=== PATIENT | female | born 1960 | race Caucasian/White ===

== ENCOUNTER 2016-08-12 05:18 | Inpatient (IN) | payer MEDICARE, MEDICAID ==
[~2016-08-12] VITALS: Ht 172.7 cm; Wt 51.0 kg
[2016-08-12] VITALS (21 sets, daily range): BP systolic 79–126; BP diastolic 44–72; PULSE 74–100; RESP 17–25; O2SAT 92–100
[~2016-08-12 05:18] MED LIST: ALBU8.5H2 INHALATION; ALPR1TAB7 PO; ARIP5TAB5 PO; AZIT250T4 PO; AZIT500T5 PO; CLIN-78 PO; DESV50TA PO; DIAZ5TAB PO; DXM4T PO; GUAI118L13 PO; HYDR-4003 PO; IBUP-1827 PO; PRE20 PO; TRAM50TA2 PO
[2016-08-12 05:39] LABS: Mean Corpuscular Hemoglobin 28.5 pg (27.0-35.0); Mean Corpuscular Volume 82.3 fL (81-100); Platelet Count 197 bil/L (150-400)
[2016-08-12 05:55] LABS: BASOPHILS % (AUTO) 0.9 % (0-3); EOSINOPHILS % (AUTO) 0.1 % (0-5); MONOCYTES % (AUTO) 9.4 % (4-12); NEUTROPHILS % (AUTO) 72.7 % (40-74)
[2016-08-12 06:01] LABS: Magnesium 1.9 mg/dL (1.6-2.6)
--- NOTE | 2016-08-12 06:22 | ED.REPORT ---
HPI-Dyspnea / Wheezing Date of Service Aug 12, 2016 ED Provider: Luther Tiwari MD The patient is a 55 year old female with history of COPD, chronic back and neck pain, anxiety, and IV drug use, who presents to the emergency department by EMS complaining of shortness of breath and increased back pain that began a few hours ago. Her back pain is located on the left side. She has been "sick" for the last few weeks, her symptoms have included: fever, congestion, runny nose, headache, and a productive cough with yellow sputum. She has been out of her inhaler for some time. She denies sore throat, chest pain, abdominal pain, nausea, vomiting or diarrhea. She reports history of heroin use, she last used last night around 2300. Nursing Notes Stated Complaint: SHORT OF BREATH Chief Complaint: Respiratory Distress Nursing Notes Reviewed: Yes Allergies: Coded Allergies: Sulfa (Sulfonamide Antibiotics) (Verified Allergy, Intermediate, FEVER SOB , 08/12/16) No Active Prescriptions or Reported Meds General Time Seen by MD: 05:51 Chief Complaint Shortness of breath, Other (back pain) Hx Obtained From: Patient, EMS Arrived By: Ambulance Sudden in Onset?: No Onset Occurred: 1 - 4 hours ago Symptom Duration: Since onset Location: : Back Quality: Same as prior, Painful Severity: Current: Mild Severity: Maximum: Moderate Recent Healthcare: No recent hospitalization Risk Factors Well's Criteria for PE Well's PE Score: 0-2 pts (low risk 3.6%) Past Medical History Past Medical History Depression Anxiety Chronic neck and back pain on Tramadol COPD Reports: Asthma Past Surgical History neck surgery Reports: Tubal ligation Family History Noncontributory Smoking History Current Every Day Smoker Social History Alcohol Use: 1-3 per day Drug Use: IV drugs, THC Other Social History: Local resident Ambulatory Status Independent Review of Systems Constitutional: Reports: Fever Ears / Nose / Throat: Reports: Nasal congestion, Denies: Sore throat Respiratory: Reports: Prod cough, yellow, Shortness of breath Cardiovascular: Denies: Chest pain Musculoskeletal: Reports: Back pain Allergy / Immune: Reports: Rhinorrhea Complete sys rev & neg: except as marked. GI: Denies: Abdominal pain, Diarrhea, Nausea, Vomiting Neurologic: Reports: Headache Physical Exam Initial Vital Signs Vital Signs (First) Date Time Temp Pulse Resp B/P Pulse Ox O2 Delivery O2 Flow Rate FiO2 3/29/17 05:35 37.0 89 25 94/63 100 Simple Mask 8 Initial VS: Reviewed Head / Eyes: Atraumatic, Normocephalic, PERRL ENT: Mucous membranes moist, Conjunctiva normal, No scleral icterus Abdomen / GI: Soft, Non-tender, No guarding, No rebound, No distention Lymphatic: No lymphadenopathy Extremities: Vascular intact, Neuro intact, No swelling, No tenderness Skin: Warm, Dry, No cyanosis Neurologic: Alert, Oriented, Nonfocal Psychiatric: Mood/affect normal, Behavior normal, Normal thought content General/Constitutional: Awake, Alert, No acute distress, Cooperative Neck: Atraumatic, Supple, No meningismus, Full range of motion, No swelling, Non-tender, No masses Respiratory / Chest: Breath sounds = bilat, No respiratory distress, No wheezing, No retractions Coarse breath sounds bilaterally. No increased work of breathing. Cardiovascular: Heart rate NL, Regular rhythm, Heart sounds NL, No gallop, No murmurs, No rubs, Peripheral circulation NL Back: Full range of motion, No midline vertebral tend Interpretation & Diagnostics Lab Results Interpretation Result Diagram: 08/12/16 0500 08/12/16 0500 Test 08/12/16 05:00 08/12/16 07:15 White Blood Count 10.5th/mm3 (3.8-10.1) Red Blood Count 4.24mil/mm3 (3.90-5.20) Hemoglobin 12.1g/dL (12.0-15.6) Hematocrit 34.9% (35.0-46.0) Mean Corpuscular Volume 82.3fL (81-100) Mean Corpuscular Hemoglobin 28.5pg (27.0-35.0) Mean Corpuscular Hemoglobin Concent 34.7% (32.0-37.0) Red Cell Distribution Width 13.1% (12.3-15.4) Platelet Count 197bil/L (150-400) Neutrophils (%) (Auto) 72.7% (40-74) Lymphocytes (%) (Auto) 16.7% (14-46) Monocytes (%) (Auto) 9.4% (4-12) Eosinophils (%) (Auto) 0.1% (0-5) Basophils (%) (Auto) 0.9% (0-3) Band Neutrophils % 0% (1-5) Sodium Level 131mEq/L (134-144) Potassium Level 4.2mEq/L (3.5-5.2) Chloride Level 91mEq/L (97-108) Carbon Dioxide Level 24mmol/L (18-29) Blood Urea Nitrogen 18mg/dL (6-24) Creatinine 0.61mg/dL (0.57-1.00) Estimat Glomerular Filtration Rate 147mL/min (>59) Glucose Level 109mg/dL (60-99) Calcium Level 9.0mg/dL (8.5-10.1) Magnesium Level 1.9mg/dL (1.6-2.6) Total Bilirubin 0.6mg/dL (0.0-1.2) Aspartate Amino Transf (AST/SGOT) 30U/L (0-50) Alanine Aminotransferase (ALT/SGPT) 34U/L (0-32) Alkaline Phosphatase 80U/L (25-150) Total Protein 8.4g/dL (6.4-8.4) Albumin 3.2g/dL (3.4-5.0) Lactic Acid Level 0.7mmol/L (0.4-2.0) ECG Interpretation ECG Interpretation: Sinus rhythm with a rate of [address] T changes Time: 09:38 Interpreted by: ED physician X-Ray Chest Interpretation Chest Xray Interpretation: Concerning for left lower lobe infiltrate Interpretation / Wet Read by: Wet read ED physician Re-Eval/Medical Decision Med Decision/Clinical Course 55 yo f h/o IVDU, cough, fevers. LLL pneumonia. Trops elevated. No EKG changes. Admit for CA-Pneumonia and troponin elevation. Cannot r/o endocarditis - blood cultures sent. Rocephin, AZT given. Source of Hx: Old records, EMS Re-Evaluation/Progress #1: Time of Eval: 06:28 Re-Evaluation/Progress Note: Her symptoms were slightly improved with the Nebulizer treatment. Re-Evaluation/Progress #2: Time of Eval: 09:18 Re-Evaluation/Progress Note: Rechecked the patient. Discussed results, diagnosis, and plan for admission. All questions were addressed. Consultation : Referral / Consult Name: Jian Stringer MD Consulted With: Hospitalist Requested Call at: 09:18 Call Returned at: 10:04 Clerical Investigator: Will see patient, Agrees with eval, Agrees with plan, Accepts admit Counseled Regarding: Diagnosis, Lab results, Need for admission Discharge & Departure Impression: Primary Impression: Pneumonia Pneumonia type: due to unspecified organism Laterality: left Lung location : lower lobe of lung Qualified Code: J18.9 - Pneumonia, unspecified organism Additional Impressions: Elevated troponin Hypotension Hypotension type: unspecified hypotension type Qualified Code: I95.9 - Hypotension, unspecified COPD exacerbation Disposition: Home Discharge Condition All VS Reviewed: Yes Condition: Stable Referrals: Alise Mackey PA-C (PCP) Scribe Attestation Portions of this note were transcribed by Dilma Granados. Dr. Karie Price personally performed the history, physical exam and medical decision-making; I reviewed and confirmed the accuracy of the information in the transcribed note. Signed by: Isai Bruner, 08/12/2016 at 1015. copies to: Alise Mackey PA-C, Ben M MD Aug 12, 2016 06:22 Dilma Granados Aug 12, 2016 06:30 Hypotension type: unspecified hypotension type Qualified Code: I95.9 - Hypotension, unspecified COPD exacerbation Disposition: Home Discharge Condition All VS Reviewed: Yes Condition: Stable Referrals: Alise Mackey PA-C (PCP) Scribniru Attestation Portions of this note were transcribed by Dilma Granados. Dr. Karie Price personally performed the history, physical exam and medical decision-making; I reviewed and confirmed the accuracy of the information in the transcribed note. Signed by: Isai Bruner, 08/12/2016 at 1015. copies to: Alise Mackey PA-C, Ben M MD Aug 12, 2016 06:22 Dilma Granados Aug 12, 2016 06:30
[2016-08-12] MEDS ORDERED: cefTRIAXone Inj 2,000 MG in Dextrose 5% Minibag Plus 50 ML IV ONE (06:30)
[2016-08-12] MEDS ORDERED: Azithromycin Inj 500 MG in Dextrose 5% 250 ML IV ONE (06:30)
[2016-08-12] MEDS ORDERED: 0.9% Sodium Chloride 1,000 ML IV ONE (06:30)
[2016-08-12] MEDS ORDERED: HYDROcodone-APAP 5-325 mg Tablet PO ONE (06:35)
[2016-08-12] MEDS ORDERED: Ondansetron 2 mg/mL 2 mL Inj ONE (07:55)
--- NOTE | 2016-08-12 09:13 | DRSVH ---
PROCEDURE: X-RAY CHEST ONE VIEW, PORTABLE ([id number]) INDICATIONS: SHORT OF BREATH TECHNIQUE: One view of the chest was acquired. COMPARISON: [facility], CR, XR CHEST 2VW, 02/29/2016, 7:11. FINDINGS: Surgical changes and devices: Lower cervical spine fixation hardware. Lungs and pleura: Bibasilar rounded opacities are present which may represent nipple shadows. Patchy opacity also present on the left lung base suspicious for pneumonia. Mediastinum: Mediastinal contours appear normal. Heart size is normal. Bones and chest wall: No suspicious bony lesions. Overlying soft tissues appear unremarkable. IMPRESSION: 1. Probable prominent bibasilar nipple shadows and airspace opacity within the left lung base likely related to aspiration or pneumonia. The recommend clinical correlation and repeat two-view chest rad iograph in 30 days is recommended to assure clearing. Dictated by: Giuseppe Martinez RRA Interpreted: Neisha Bradford MD on 08/12/2016 at 9:11 Transcribed by: JEANNIE on 08/12/2016 at 9:13 Approved by: Neisha Bradford MD, PhD on 08/12/2016 at 16:41
[2016-08-12] MEDS ORDERED: 0.9% Sodium Chloride 1,000 ML IV SCH (10:06)
[2016-08-12] MEDS ORDERED: Polyethylene Glycol (PEG) 17 Gm Powder PO PRN (10:10)
[2016-08-12] MEDS ORDERED: Senna-Docusate 8.6-50 mg Tablet PO PRN (10:10)
[2016-08-12] MEDS ORDERED: Alum-Mag Hydrox-Simeth 30 mL Suspension PO PRN ×2 (10:10)
[2016-08-12] MEDS: 0.9% Sodium Chloride 1,000 ML IV SCH ×3 (10:10→23:48)
[2016-08-12] MEDS ORDERED: Ondansetron 2 mg/mL 2 mL Inj IVPUSH PRN ×2 (10:10)
[2016-08-12] MEDS ORDERED: Albuterol 2.5 mg/3 mL Inhalation Solution NEB PRN (10:10)
[2016-08-12] MEDS ORDERED: MethylprednisoLONE Sodium Succinate 40 mg/mL Inj IVPUSH SCH (10:15)
[2016-08-12] MEDS ORDERED: Albuterol HFA 60 Puff 8 Gm Inhaler INHALATION PRN (10:20)
[2016-08-12] MEDS ORDERED: CODEINE PHOSPHATE PO PRN (10:20)
[2016-08-12] MEDS ORDERED: GUAIFENESIN PO PRN (10:20)
--- NOTE | 2016-08-12 10:20 | PCM.HPMED ---
Subjective Date of Service Aug 12, 2016 Primary Provider: Admitting Physician: Primary Care Physician: Alise Mackey PA-C Attending Physician: Chief Complaint: Chest pain, shortness of breath generalized malaise History of Present Illness: 55-year-old female presents to the emergency room because she has been feeling particularly poorly today, the major thing she tells me is that it was back pain that really caused her to call 911. She is getting back pain in addition to her wheezing/cough and generalized malaise that has been getting worse for the last 2-3 weeks. He is an IV drug abuser states she "does 2 points of heroine" a day and therefore should not worry about going through withdrawl. She is was angry with her family who just kept telling her she was "dope sick", she knew something was different and finally because no P was helping her 911 and was brought to the emergency room. She has been having runny nose and cough for weeks generalized malaise and fatigue. She says that her shortness of breath is not really acutely worse at this point in time. The last time she used was last night at 11 PM. Review of Systems: General no fevers weight loss weight gain, patient states she has been having sweats and malaise per week Neuro no syncope or loss of consciousness, no extremity weakness or numbness no seizures CVS: No chest pain no orthopnea PND Pulmonary: ++ cough or sputum no dyspnea GI: No nausea vomiting diarrhea blood or black stools + is eating today but had not felt like eating in 2 days : No dysuria or urinary frequency or urinary hesitancy Musculoskeletal: No joint swelling + back pain Skin: No new rashes Endocrine: No heat or cold intolerance is no polyuria polydipsia Heme: No easy bleeding or bruising no lymphadenopathy Psych: No new anxiety insomnia, no homicidal or suicidal ideation, she has serious ongoing depression with "pain of life" she is not homicidal or suicidal she just wants to "get her life back" HEENT: No new swelling, sore throat hearing loss visual disturbances.Throat pain or drainage Eyes: No visual deficits Allergies Coded Allergies: Sulfa (Sulfonamide Antibiotics) (Verified Allergy, Intermediate, FEVER SOB , 08/12/16) PMH Depression Anxiety Chronic neck and back pain on Tramadol COPD Reports: Asthma Past Surgical History neck surgery Reports: Tubal ligation Family History-Noncontributory no known history of early cancer, diabetes or cardiac disease Smoking History Current Every Day Smoker Social History Alcohol Use: 1-3 per day Drug Use: IV drugs (heroine), THC Social History Hx Alcohol Use: No Hx Substance Use: Yes (Heroin) Smoking Status: Current Every Day Smoker Exam Vital Signs Vital Sign - Last Date Time Temp Pulse Resp B/P Pulse Ox O2 Delivery O2 Flow Rate FiO2 08/12/16 08:00 84 19 81/49 95 Room Air 08/12/16 05:35 37.0 8 Intake and Output 08/11/16 08/11/16 08/12/16 Cumulative From/Thru 15:00 23:00 07:00 08/12/16 05:35 - 08/12/16 07:00 Intake Total 1000 ml 1000 ml Balance 1000 ml 1000 ml Intake IV Total 1000 ml 1000 ml Exam Gen.: Patient lying in bed no apparent distress Eyes: Open, conjunctiva clear, no scleral icterus HEENT: Normal ears, normal nose Neck: trachea midline, supple CVS: RRR no murmur or gallop Lungs: CTA no wheezes rhonchi no evidence of respiratory distress or accessory muscle usage Abdomen: NABS/NT Muscular: Extremities moving 4, no obvious deformities Neuro: cranial nerves II through XII are intact to gross examination, no focal deficits Skin: Warm and dry Psych: Pleasant and appropriate Lab and Diagnostics Labs Gen.- A+ O 3 no apparent distress. Appears older than stated age Eyes- open conjunctiva clear, pupils equal nonicteric Mouth- oral mucosa moist, no exudate, dentition intact ENT- ears normal, nose normal Neck- supple/trach midline CVS- RRR no murmur or gallop Lungs- CTA, no accessory muscle usage GI- NABS/NT soft Musc- moving 4 no obvious deformity Neuro- cranial nerves II through XII intact to gross examination, nonfocal Skin- warm and dry, no rashes/lesions/wounds noted Psych- pleasant and appropriate, she was intermittently tearful and I saw her initially, when I return to visit with her she looks much more put together. Result Diagram: 08/12/16 0500 08/12/16 0500 X-Rays, CTs and MRIs CXR . Probable prominent bibasilar nipple shadows and airspace opacity within the left lung base likely related to aspiration or pneumonia. The recommend clinical correlation and repeat two-view chest radiograph in 30 days is recommended to assure clearing. 12-lead ECG EKG concurrently reviewed by myself rate 76, QTC [address] segment changes noted . Sinus rhythm * Cannot exclude anterior infarct . No previous ECG available for comparison Assessment & Plan 55-year-old female IV drug abuser presenting with pneumonia/COPD exacerbation and likely musculoskeletal back pain from coughing/dyspnea. #Elevated troponin -Rule out AR by EKG and enzymes, -Not pursuing Myoview at this time given benign nature and atypical chest pain. #Hypotension/hyponatremia -IV fluids, follow up in the morning #COPD/pneumonia-patient on room air, it is my thought that this patient might be able to go home 08/13 -Zithromax/Rocephin -Prednisone 40 mg daily -Albuterol/bronchodilator #IVDA/opiate dependence -Might even utilize clonidine in addition to gabapentin for withdrawal symptoms currently blood pressure too low for clonidine -Care management consult -Not pursuing endocarditis at this time unless blood cultures turn positive #Chronic neck pain-apparently she lies his tramadol sc outpatient setting and will hold off on that for now. Will utilize Tylenol/Naprosyn #Anxiety/Depression? Hx bipolar reported- -will start patient on Celexa 20 mg daily, gabapentin 300 mg 34 times a day as IV, I want to try this before utilizing lorazepam -History the patient has been on ariprazole will resume #Prophylaxis-DVT with heparin/SCDs, GI pantoprazole #Disposition patient from independent living full code Time spent 60min Jian Stringer MD Aug 12, 2016 10:20
[2016-08-12 10:59] LABS: TROPONIN T 0.022 ug/L (0.0-0.011)
[2016-08-12 11:09] LABS: Creatine Kinase 24 U/L (21-215)
--- NOTE | 2016-08-12 12:54 | NUR ---
Admission Pt arrived to [facility] rm 1020 via gurney at approx 1250. Rec'd report from RIKI Ramirez RN. Pt was able to ambulate to the hospital bed. Pt tearful and states "I cannot stop crying" discussed w/ patient if she had any drugs on her person, she states no "I am done" pt states that she had stopped eating because she no longer wants to be alive. Pt w/ recent life stressors that have affected her mentation and lifestyle. IV SL, RA, Reports difficulty coughing and increased midsternal pain w/ coughing. Oriented to room and call light completed by ROTARY DUMP OPERATOR.
[2016-08-12] MEDS: Albuterol 2.5 mg/3 mL Inhalation Solution NEB SCH ×2 (13:24→16:28)
[2016-08-12] MEDS: Sodium Chloride LOK Flush 10 mL Syringe IVFLUSH SCH ×2 (13:39→23:48)
[2016-08-12 14:21] LABS: APPEARANCE,URINE HAZY (CLEAR,HAZY); COLOR,URINE YELLOW (YELLOW); OCCULT BLOOD,URINE TRACE (NEGATIVE); UROBILINOGEN,URINE NORMAL (NORMAL)
[2016-08-12 16:20] LABS: TROPONIN T 0.023 ug/L (0.0-0.011)
[2016-08-12 16:31] LABS: Creatine Kinase 23 U/L (21-215)
[2016-08-12] MEDS: LORazepam 0.5 mg Tablet PO PRN (16:48)
--- NOTE | 2016-08-12 17:07 | NUR ---
Possible panic attack Pt had just finished her breathing treatment and this RN could hear her coughing w/ loud stridor from neighboring room. Entered room, pt bent over coughing and crying. Diaphoretic. RT called in as well as willow worker. VSS HR 110, Pt encouraged to breathe into a paperbag and cool rag placed on her neck Ativan administered. Pt able to calm down, heart rate decreased. Hospitalist notified and this RN requests medications to help w/ withdrawal symptoms. No new orders at this time. Call light w/in reach
[2016-08-13] VITALS (7 sets, daily range): BP systolic 101–144; BP diastolic 58–83; PULSE 68–102; RESP 16–18; O2SAT 94–96
[2016-08-13] MEDS: LORazepam 0.5 mg Tablet PO PRN ×2 (00:41→10:07)
--- NOTE | 2016-08-13 03:46 | NUR ---
Withdrawal Half way through shift, patient started c/o feeling like she was going through withdrawal and was in 10/10 pain. Noted to be restless in bed, flailing legs around, and gown half way off patient. Paged Dr. Capone and received order for Ativan 1mg IVP once. Ativan given w/ no improvement. Received new order for Methadone 10mg PO. Somewhat effective results. Waves of restlessness/calling out noted, but currently resting with eyes closed in bed. Alarm in place for safety, as patient isn't using call light for needs and continues to be impulsive and getting OOB without assistance.
[2016-08-13] MEDS ORDERED: cefTRIAXone Inj 1,000 MG in Dextrose 5% Minibag Plus 50 ML IV SCH (07:00)
[2016-08-13] MEDS ORDERED: Pantoprazole 20 mg ER24 Tablet PO SCH (07:30)
[2016-08-13] MEDS ORDERED: DESVENLAFAXINE SUCCINATE 50 MG PO SCH (08:30)
[2016-08-13] MEDS: Sodium Chloride LOK Flush 10 mL Syringe IVFLUSH SCH (08:30)
[2016-08-13] MEDS: 0.9% Sodium Chloride 1,000 ML IV SCH (10:33)
--- NOTE | 2016-08-13 13:29 | NUR ---
IMM explained and verbal consent given(patient in isolation room). Copy of IMM given to patient. Arely CONTEH/LORETTA
--- NOTE | 2016-08-13 13:35 | NUR ---
Social Work- Initial Assessment/ Readiness for Discharge Data: See Initial Assessment. Pt is a 55 year old female admitted 08/12/16 for pneumonia per H&P. Pt's insurance is [employer] and [email or web address]. Pt has no PCP. SW met with pt regarding discharge plan, SW role explained. Pt alert and oriented x3. Pt resides in an apartment in [place] alone with her pets where she remains independent with her ADLs. Pt uses no DME, does not drive. Pt has no LTC or VA benefits. Pt has a remote history of HH RN PT 5 years ago, unsure which company was used. Pt has no SNF history. Pt has no DPOA, SW encouraged pt to complete this and bring copy to the hospital. Pt has a history of IV drug use. SW spoke with pt regarding motivation to change. The patient has agreed to complete an on-site assessment with [facility]. CD consult deferred. GERMAN obtained. Pt to discharge home with family to transport via POV. No additional discharge needs anticipated. SW will continue to follow. Assessment: Pt who is independent at base. Plan: Pt to receive on site assessment with [facility]. GERMAN obtained. Pt to discharge home with family to transport via POV. No additional discharge needs anticipated. SW will continue to follow if needs arise. GILBERTO Foley Addendum: 08/13/16 at 1343 by TREVA BUSTAMANTE SS Amended: Links added. Addendum: 08/13/16 at 1504 by TREVA BUSTAMANTE SS SW followed up with pt regarding CDP. Pt states she no longer wants to speak with CDP, just wants to go home. SW alerted CDP of this. Pt is medically stable. Pt to discharge home with friend to transport via POV. SW will continue to follow. Teena Bustamante, LIME SLUDGE KILN OPERATOR
--- NOTE | 2016-08-13 14:38 | PCM.DIMED ---
Discharge Instructions Date of Service Aug 13, 2016 Dates of Hospitalization Aug 12, 2016 at 11:35 Discharge Diagnosis Discharge Diagnosis Back pain, COPD/pneumonia Test Results CXR consistent with pneumonia Diet No restrictions Activity No restrictions Call your provider Fever or Chills, Chest pain Patient Instructions Find yourself a primary care provider [facility] Jian Stringer MD Aug 13, 2016 14:38
[2016-08-13] MEDS ORDERED: PANT20TA2 PO (14:43)
[2016-08-13] MEDS ORDERED: PRE20 PO (14:43)
[2016-08-13] MEDS ORDERED: GABA300C PO (14:43)
[2016-08-13] MEDS ORDERED: NAPR250T PO (14:43)
[2016-08-13] MEDS ORDERED: NICO1PAT6 TOPICAL (14:43)
[2016-08-13] MEDS ORDERED: LORA-302 PO (14:43)
[2016-08-13] MEDS ORDERED: ZIT250 PO (14:43)
[2016-08-13] MEDS ORDERED: CEFU500T61 PO (14:43)
[2016-08-13] MEDS ORDERED: ALBU8.5H2 INHALATION (14:43)
[2016-08-13] MEDS ORDERED: ARIP5TAB5 PO (14:46)
[2016-08-13] MEDS ORDERED: CITA20TA PO (14:46)
--- NOTE | 2016-08-13 14:56 | PCM.DIMED ---
Discharge Instructions Date of Service Aug 13, 2016 Dates of Hospitalization Aug 12, 2016 at 11:35 Discharge Diagnosis Discharge Diagnosis Back pain, COPD/pneumonia Diet No restrictions Activity No restrictions Call your provider Fever or Chills, Chest pain Patient Instructions Find yourself a primary care provider the [facility] in this hospital may be a good choice given appointment as soon as possible Follow-up Provider: [facility] Follow-up with PCP in: 1 week Jian Stringer MD Aug 13, 2016 14:56
--- NOTE | 2016-08-13 14:58 | PCM.DC.MED ---
Discharge Summary Date of Service Aug 13, 2016 Dates of Hospitalization Date of Hospital Admission Aug 12, 2016 at 11:35 Date of Discharge: Aug 13, 2016 Providers: Admitting Physician: Augusta Stringer MD Primary Care Physician: Alise Mackey PA-C Attending Physician: Augusta Stringer MD Diagnosis at Time of Discharge Diagnosis at Time of Discharge Back pain, COPD/pneumonia Procedures XRay, CTs & MRIs CXR . Probable prominent bibasilar nipple shadows and airspace opacity within the left lung base likely related to aspiration or pneumonia. The recommend clinical correlation and repeat two-view chest radiograph in 30 days is recommended to assure clearing. ECG 12 Lead EKG concurrently reviewed by myself rate 76, QTC [address] segment changes noted . Sinus rhythm * Cannot exclude anterior infarct . No previous ECG available for comparison Other Diagnostics Blood culture after 24 hours negative Brief History 55-year-old female presents to the emergency room because she has been feeling particularly poorly today, the major thing she tells me is that it was back pain that really caused her to call 911. She is getting back pain in addition to her wheezing/cough and generalized malaise that has been getting worse for the last 2-3 weeks. He is an IV drug abuser states she "does 2 points of heroine" a day and therefore should not worry about going through withdrawl. She is was angry with her family who just kept telling her she was "dope sick", she knew something was different and finally because no P was helping her 911 and was brought to the emergency room. She has been having runny nose and cough for weeks generalized malaise and fatigue. She says that her shortness of breath is not really acutely worse at this point in time. The last time she used was last night at 11 PM. Hospital Course 55-year-old female IV drug abuser presenting with pneumonia/COPD exacerbation and likely musculoskeletal back pain from coughing/dyspnea. #Elevated troponin -Rule out MD by EKG and enzymes, -Not pursuing Myoview at this time given benign nature and atypical chest pain. #Hypotension/hyponatremia- -IV fluids, overnight, hypotension resolved #COPD/pneumonia-patient on room air, it is my thought that this patient might be able to go home 08/13 -Zithromax/Rocephin -Prednisone 40 mg daily -Albuterol/bronchodilator #IVDA/opiate dependence -Might even utilize clonidine in addition to gabapentin for withdrawal symptoms currently blood pressure too low for clonidine -Care management consult -Not pursuing endocarditis at this time unless blood cultures turn positive negative after 24 hours -Unfortunately patient did not want to meet with the chemical dependency counselor and wanted to go home so she was discharged in stable and improved condition from perspective of lungs. #Chronic neck pain- utilize Tylenol/Naprosyn #Anxiety/Depression? Hx bipolar reported- -will start patient on Celexa 20 mg daily, gabapentin 300 mg 3-4 times a day, I want to try this before utilizing lorazepam -History the patient has been on ariprazole will resume #Prophylaxis-DVT with heparin/SCDs, GI pantoprazole #Disposition patient from independent living full code Sadly patient returning to live with her daughter who is still using I am not hopeful for her recovery I gave her one-month supply of all of these medications and a referral to the [facility] resident clinic Exam Vital Signs (Last) Date Time Temp Pulse Resp B/P Pulse Ox O2 Delivery O2 Flow Rate FiO2 08/13/16 10:19 36.0 68 18 121/75 96 Room Air 08/12/16 05:35 8 Exam Gen.- A+ O 3 no apparent distress. Appears older than stated age Eyes- open conjunctiva clear, pupils equal nonicteric Mouth- oral mucosa moist, no exudate, dentition intact ENT- ears normal, nose normal Neck- supple/trach midline CVS- RRR no murmur or gallop Lungs- CTA, no accessory muscle usage GI- NABS/NT soft Musc- moving 4 no obvious deformity Neuro- cranial nerves II through XII intact to gross examination, nonfocal Skin- warm and dry, no rashes/lesions/wounds noted Psych- pleasant and appropriate, she was intermittently tearful and I saw her initially, when I return to visit with her she looks much more put together. Test 08/12/16 05:00 08/12/16 07:15 08/12/16 13:48 08/12/16 15:45 White Blood Count 10.5th/mm3 (3.8-10.1) Red Blood Count 4.24mil/mm3 (3.90-5.20) Hemoglobin 12.1g/dL (12.0-15.6) Hematocrit 34.9% (35.0-46.0) Mean Corpuscular Volume 82.3fL (81-100) Mean Corpuscular Hemoglobin 28.5pg (27.0-35.0) Mean Corpuscular Hemoglobin Concent 34.7% (32.0-37.0) Red Cell Distribution Width 13.1% (12.3-15.4) Platelet Count 197bil/L (150-400) Neutrophils (%) (Auto) 72.7% (40-74) Lymphocytes (%) (Auto) 16.7% (14-46) Monocytes (%) (Auto) 9.4% (4-12) Eosinophils (%) (Auto) 0.1% (0-5) Basophils (%) (Auto) 0.9% (0-3) Band Neutrophils % 0% (1-5) Sodium Level 131mEq/L (134-144) Potassium Level 4.2mEq/L (3.5-5.2) Chloride Level 91mEq/L (97-108) Carbon Dioxide Level 24mmol/L (18-29) Blood Urea Nitrogen 18mg/dL (6-24) Creatinine 0.61mg/dL (0.57-1.00) Estimat Glomerular Filtration Rate 147mL/min (>59) Glucose Level 109mg/dL (60-99) Calcium Level 9.0mg/dL (8.5-10.1) Magnesium Level 1.9mg/dL (1.6-2.6) Total Bilirubin 0.6mg/dL (0.0-1.2) Aspartate Amino Transf (AST/SGOT) 30U/L (0-50) Alanine Aminotransferase (ALT/SGPT) 34U/L (0-32) Alkaline Phosphatase 80U/L (25-150) Total Protein 8.4g/dL (6.4-8.4) Albumin 3.2g/dL (3.4-5.0) Lactic Acid Level 0.7mmol/L (0.4-2.0) Urine Color Yellow (YELLOW) Urine Appearance Hazy (CLEAR,HAZY) Urine pH 7.0 (5.0-8.0) Urine Specific [place] 1.010 (1.003-1.035) Urine Protein Negativemg/dL (NEG,TRACE) Urine Glucose (UA) Negativemg/dL (NEGATIVE) Urine Ketones Negativemg/dL (NEGATIVE) Urine Occult Blood Trace (NEGATIVE) Urine Nitrite Positive (NEGATIVE) Urine Bilirubin Negative (NEGATIVE) Urine Urobilinogen Normalmg/dL (NORMAL) Urine Leukocyte Esterase Small (NEGATIVE) Urine RBC 0-2/hpf (0-2) Urine WBC 6-10/hpf (0-5) Urine Epithelial Cells Occasional/hpf (NONE-MOD) Urine Crystals None seen (NONE SEEN) Urine Bacteria Few/hpf (NONE-FEW) Urine Hyaline Casts None/lpf (NONE) Urine Granular Casts None seen (NONE SEEN) Urine Waxy Casts None seen (NONE SEEN) Urine Red Blood Cell Casts None seen (NONE SEEN) Urine White Blood Cell Casts None seen (NONE SEEN) Urine Mucus None seen (None Seen) Urine Trichomonas None seen (NONE SEEN) Urine Yeast None (NONE SEEN) Urinalysis Comment None Urine Culture Reflexed Indicated Urine Legionella pneumophilia Ag Negative (Negative) Total Creatine Kinase 23U/L (21-215) Creatine Kinase MB < 1.0ng/mL (0.0-5.3) Creatine Kinase MB % % (0.0-5.0) Troponin T 0.023ug/L (0.0-0.011) Test 08/13/16 05:45 Triglycerides Level 74mg/dL (0-149) Cholesterol Level 120mg/dL (100-199) LDL Cholesterol, Calculated 78.200mg/dL (0-99) VLDL Cholesterol 14.800mg/dL HDL Cholesterol 27mg/dL (>39) Cholesterol/HDL Ratio 4.44 (0.0-4.4) Microbiology Results Blood cltr - after 24hrs Discharge Medications Discharge Medications Albuterol HFA (Proair HFA) 8.5 Gm Hfa.aer.ad 2 PUFFS INHALATION Q4H Prescribed by: AUGUSTA STRINGER MD Aripiprazole (Abilify) 5 Mg Tablet 5 MG PO DAILY Prescribed by: AUGUSTA STRINGER MD Azithromycin (Zithromax) 250 Mg Tablet 500 MG PO DAILY Prescribed by: AUGUSTA STRINGER MD Cefuroxime Axetil (Cefuroxime) 500 Mg Tablet 500 MG PO BID Prescribed by: AUGUSTA STRINGER MD Citalopram Hydrobromide (Celexa) 20 Mg Tablet 20 MG PO DAILY Prescribed by: AUGUSTA STRINGER MD Naproxen (Naproxen) 250 Mg Tablet 500 MG PO BIDWM Prescribed by: AUGUSTA STRINGER MD Pantoprazole DR (Pantoprazole DR) 20 Mg Tablet.dr 20 MG PO DAILYAC Prescribed by: AUGUSTA STRINGER MD Prednisone (PredniSONE) 20 Mg Tablet 40 MG PO DAILY Prescribed by: AUGUSTA STRINGER MD As needed Gabapentin (Neurontin) 300 Mg Capsule 300 MG PO Q4H PRN PRN anxiety Prescribed by: AUGUSTA STRINGER MD Lorazepam (Ativan) 0.5 Mg Tablet 0.5 MG PO Q6H PRN PRN For Anxiety Prescribed by: AUGUSTA STRINGER MD Nicotine 21 mg/24 hr Patch (Nicotine 21 mg/24 hr Patch) 1 Each Patch.td24 1 PATCH TOPICAL DAILY PRN PRN For Tobacco Withdrawal Prescribed by: AUGUSTA STRINGER MD Followup Plan Discharge Diet: No restrictions Discharge Activity: No restrictions Patient Instructions Find yourself a primary care provider the [facility] in this hospital may be a good choice given appointment as soon as possible Follow-up Provider: [facility] Follow-up with PCP in: 1 week Time spent >30min copies to: [facility] Augusta Stringer MD Aug 13, 2016 14:58
--- NOTE | 2016-08-13 15:37 | NUR ---
MENTAL STATUS Patient was tearful off and on while in room performing assessment and administering AM medications. Patient asked if anti-anxiety medication was included or if we were going to wait for her to 'freak out' first. Administered PO 0.5mg ativan. Continue to monitor patient.
--- NOTE | 2016-08-13 15:40 | NUR ---
DISCHARGE Reviewed discharge paperwork with patient. All hard copy Rx were given to patient. Encouraged to call [facility] clinic to make appointment for new primary care provider, gave address and phone number. IV catheter was removed with catheter intact. Patient verbalized understanding of discharge instructions. Patient got dressed independently. Transferred to wheelchair to be taken outside. Patient left with all personal belongings.
--- NOTE | 2016-08-13 16:02 | NUR ---
Social Work- Discharge Data: EMR reviewed. Pt is on day 1 of hospitalization for pneumonia per H&P. Pt is medically stable to discharge. Pt was going to see CDP from [facility] prior to discharge, then pt changed her mind and declined assessment. Pt declined completing CD assessment with SW, declined resources. Pt is excited to get home to her pets and feels that she has support at home. Pt is independent at base. Pt to discharge home with friends to transport via POV. No discharge needs. Assessment: Pt who is independent at base. Plan: Pt rescinded agreement to meet with CDP. Pt declined speaking with SW regarding CD assessment. Pt to discharge home with friends to transport via POV. No discharge needs. GILBERTO Foley
== END 2016-08-13 15:43 | disposition home or self-care (01) | DRG 190 ==
LOC: SED 05:18 → EDUNIT# 05:18 → EDBD 05:18 → OSC 11:35 → OBSVTOIN 11:35
PROVIDERS: ADMIT Hospitalist; ATTEND Hospitalist
DX: J44.0 Chronic obstructive pulmonary disease with (acute) lower respiratory infection (principal); J18.9 Pneumonia, unspecified organism; F11.20 Opioid dependence, uncomplicated; E87.1 Hypo-osmolality and hyponatremia; F17.210 Nicotine dependence, cigarettes, uncomplicated; I95.9 Hypotension, unspecified; M54.2 Cervicalgia; M54.9 Dorsalgia, unspecified; F41.9 Anxiety disorder, unspecified; F32.9 Major depressive disorder, single episode, unspecified; J44.1 Chronic obstructive pulmonary disease with (acute) exacerbation